=== PATIENT | male | born 1985 | race Caucasian/White ===

== ENCOUNTER 2018-01-14 07:29 | Emergency (ER) | payer MEDICAID ==
[~2018-01-14] VITALS: Ht 177.8 cm; Wt 105.0 kg
[2018-01-14] MEDS ORDERED: DIPHENHYDRAMINE 25MG CAPSULE PO ONE (08:15)
[2018-01-14] MEDS ORDERED: METHYLPREDNISOLONE SOD SUCC 125 MG/2 ML VIAL IV ONE (08:15)
[2018-01-14 10:07] VITALS: BP 114/64
== END 2018-01-14 10:28 | disposition home or self-care (01) ==
LOC: ER 07:49
DX: T78.40XA Allergy, unspecified, initial encounter (principal); L50.0 Allergic urticaria; X58.XXXA Exposure to other specified factors, initial encounter
CPT/HCPCS: 96374; 99284; J2930; Q0163